=== PATIENT | male | born 1955 | race Hispanic/Latino ===

== ENCOUNTER 2020-07-07 14:33 | Emergency (ER) | payer MEDICARE ==
[~2020-07-07] VITALS: Ht 170.2 cm; Wt 115.7 kg
[2020-07-07] MEDS ORDERED: IBUPROFEN 400 MG TAB PO ONE (15:15)
[2020-07-07] MEDS ORDERED: IBUPROFEN 400 MG TAB ONE (15:18)
[2020-07-07] MEDS ORDERED: PREDNISONE20 MG PO (15:47)
== END 2020-07-07 15:54 | disposition home or self-care (01) ==
LOC: FSED 14:40
DX: S83.92XA Sprain of unspecified site of left knee, initial encounter (principal); X50.1XXA Overexertion from prolonged static or awkward postures, initial encounter; Y93.01 Activity, walking, marching and hiking; M17.12 Unilateral primary osteoarthritis, left knee; I10 Essential (primary) hypertension; E66.9 Obesity, unspecified
CPT/HCPCS: 99283